=== PATIENT | male | born 1990 | race Caucasian/White ===

== ENCOUNTER 2024-03-10 09:00 | Outpatient (RCR) | payer OTHER, SELFPAY ==
--- NOTE | 2023-09-09 07:15 | HP.OTEVAL_ITS ---
Patient's Visit Information Visit Information Visit Information: MONIKA MATA is a 33 year old M, referred to Occupational Therapy by CARLOS JETT, with a diagnosis of right hand crush injury with open fx and tendon laceration. Date of Evaluation: 09/01/23 Occupational Therapist: Caroline Quinonez, JAYR/Nguyen, CHT Subjective Subjective: This 33 year old male was seen for initial OT eval with dx of right hand crush injury with tendon Zone 2 FDS and FDP of ring and long finger with radial digital nerve of ring finger - complete transection of long finer of EDC and partial transection of ring finger EDC, open displaced fraxture of proximal phalanx of long finger and ring finger Pt arrives for eval on 09/01/22 due to complications of Workers comp approval. pt now arrives with dorsal blocking orthosis on distal finger strap off - pt state he took it off because his fingers were too painful to tolerate. Has been of shortly after the dorsal blocking orthosis was made. [employer] a [employer]- pt has been employed for 12 years. DOI 08/08/23 - pt suffered a right hand crush injury between trailer -pt is unsure how he got his hand out- pt states she went to his bosses home- they called [employer] to take him to [facility]. Sent to [facility] for sx. Pt underwent emergency sx at [facility] on 08/08/23 same day as injury. pt arrives 3weeks and 3 days s/p from open reduction internal fixation phalangeal shaft fracture proximal long and ring/ irrigation and debridement pt states right MF and RF numbness (states better but still decreased sensation) pt states pain ranges 5-7/10 has been taking care of pin sites and dressing changes. pt is limited with any functional use of right and at this time. Pain Right hand: Current Pain Intensity: 0 Pain Intensity Range: 5 and 7 ROM ROM Comments: pt arrives to session with pin placements in tact of right Long and ring finger- pts PIPs are flexed at all digits to approximately 85* (touching toussaint strap) this allowed fingers to flex down vs maintaining safe position in his orthosis. therapist ed. pt why strap is important and position of fingers. pt and demo understanding. Strength Strength Comments: will test later date Quick DASH-Disab of Arm,Shoulder& Hand Quick DASH Score: 93.3325 Goals Goal:100% adherence to protocol: Yes Comment: Zone 2 FDP/FDS repair guidelines Goal:Daily scar massage when approriate: Yes Goal:ROM equal to unaffected hand: Yes Goal:Rn Navigator/Pinch strength at least 75% of unaffected hand: Yes Comment: will not initiate until Dr. warner pt due to prox. phalanx fx Goal:No pain with affected hand use: Yes Goal:Full use of affected hand in daily activities including work: Yes Goal:Decrease scar hypersensitivity: Yes Other Goal: pt and family will demo understanding of dorsal blocking orthosis at all times, off for pin cleaning only by end of 1st session. Rehabilitation General Assessment: pt arrives 3 weeks and 3 days s/p from ORIF of right RF and LF proximal phalanx fx, right LF zone 2 FDS & FDP laceration repair, right ring finger FDS zone 2 laceration repair with radial FDS skip excision, right LF & RF extensor tendon repair proximal phalanx level, right ring finger radial digital neve repair. Pt arrives with and dorsal blocking orthosis on- pt had distal strap off due to pain- fingers are now in flexed position vs safe position. pin sites are clean and look well taken care of. pt limited all use of right hand at this time. pt demo need for skilled OT services 2-3x week for next 8 weeks to assist pt in gaining scar mtg, ROM and when appropriate strengthening to return pt to his PLOF. Today therapist ed, pt on dx and why [place] blocking orthosis is needed. Ed. pt that all straps needed to be on to keep pts hand in safe position to limit complications of contractures/scar adhesions. pt demo understanding. Rehabilitation Potential: Good Anticipated Interventions Anticipated Interventions: A/AAROM/PROM, Edema Control, Scar Care, Triggerpoint Release, Wound Care, Modalities, Orthoses, Joint Protection/Energy Conservation, Ergonomic Education, Fine Motor Coord/Helder, Neuro Reeducation, Education re assistive Equipment, Education re Diagnosis, Caregiver Training and Home Program Visit Plan Frequency: 1-2x /Week Duration: 2 Months TEXT: Thank you for the opportunity to evaluate your patient. For Medicare and Medicare HMO plans, please review the plan of care and approve it. It will need to be FAXED BACK to us at [phone] for Medicare purposes. Please let me know if there are questions or concerns regarding this plan of care. Physician Signature: ____Date:
--- NOTE | 2023-10-01 17:44 | OTREVAL_ITS ---
Re-Evaluation Intro: CARLOS JETT, It has been my pleasure to treat MONIKA MATA over the last 10 visits for right hand crush injury with open fx and tendon laceration. Please see the progress note below for an update on the occupational therapy plan of care! Subjective Subjective: pt arrives 7 weeks and 5 days s/p from zone 2 right hand crush injury with open fx and tendon laceration FDP/FDS with extensor tendon laceration and repair. Objective Objective/Function: IF MCP current ROM -5/85 prior -30/ 90 PIP current -10/105 prior-20/90 DIP 0/65 prior 0/60 MF MCP ROM current -30/80 prior -50/85 PIP -65/80 prior -70/70 DIP 20/20 MF DIP demo sight tendon motion blocking RF MCP current 0/70 prior -20/65 PIP -65/76 prior ROM -75/75 DIP 20/20 prior ROM 30 LF MCP current 0/85 prior -5/ 80 PIP -15/ DIP -5/80 LF demo full functional AROM pts incisions have healed: pt demo with scar adhesions both flexion and ext of MF and RF. pt is out of orthosis he has elastomer for scar - wearing night- pt is performing AROM and PROM to his viraj. therapy is working with joints of MF and RF to increase mobility, use of FES to increase flexion/extension pull through scar adhesions. Plan Plan Frequency: 1-2x /Week Duration: 2 Months Visits in this POC: 18 Plan: pt to return to Dr. this Friday. Goals Goals Patient Goals: Regain Mobility, Regain Strength, Decrease Pain, Return to Work, Improve Fine Motor Skills, Use Hand/Wrist/Arm Normally Again and Increase ROM Goal:100% adherence to protocol: Yes Goal:Daily scar massage when approriate: Yes Goal:ROM equal to unaffected hand: Yes Goal:Human Factors Engineer/Pinch strength at least 75% of unaffected hand: Yes Goal:No pain with affected hand use: Yes Goal:Full use of affected hand in daily activities including work: Yes Goal:Decrease scar hypersensitivity: Yes Other Goal: pt and family will demo understanding of dorsal blocking orthosis at all times, off for pin cleaning only by end of 1st session. Anticipated Interventions Anticipated Interventions Anticipated Interventions: A/AAROM/PROM, Edema Control, Scar Care, Triggerpoint Release, Wound Care, Modalities, Orthoses, Joint Protection/Energy Conservation, Ergonomic Education, Fine Motor Coord/Helder, Neuro Reeducation, Education re assistive Equipment, Education re Diagnosis, Caregiver Training and Home Program Re-Evaluation Ending Re-evaluation ending: Please do not hesitate to contact me at [phone] by phone or if you have questions or concerns regarding this new plan of care! Sincerely, Caroline Quinonez, OTR/L, CHT
--- NOTE | 2023-11-26 09:44 | OTREVAL_ITS ---
Re-Evaluation Intro: CARLOS JETT, It has been my pleasure to treat MONIKA MATA over the last 12 visits for right hand crush injury with open fx and tendon laceration. Please see the progress note below for an update on the occupational therapy plan of care! Subjective Subjective: pt arrives to session states she is feeling ok- did use his hand to try and repair his truck - noticed increase burning sensation when he finally came in the house and took a shower- like feeling of hot water on a cold hand pt is compliant with all his HEP and use of orthosis. Objective Objective/Function: pts MCP flexion AROM has improved to WFL. pts PIPJ continue to be limited with AROM right MF PIP AROM -60/80* right RF PIP AROM -65/85* PROM of Right MF and RF PIP flexion following can get to 90* but with loss of PIP ext to -60 from -50* ed. pt with increase in flexion may lose ext pt joint mobility of PIPJ with PROM and AROM not sig. for functional joint motion. pt is compliant with use of orthosis and performing his ex. Plan Plan Plan: return to to discuses next step. pt will cont. with use of orthosis and PROM/AROM and AAROM at tolerated. Goals Goals Patient Goals: Regain Mobility, Regain Strength, Decrease Pain, Return to Work, Improve Fine Motor Skills, Use Hand/Wrist/Arm Normally Again and Increase ROM Goal:100% adherence to protocol: Yes Goal:Daily scar massage when approriate: Yes Goal:ROM equal to unaffected hand: Yes Goal:Log Rider/Pinch strength at least 75% of unaffected hand: Yes Goal:No pain with affected hand use: Yes Goal:Full use of affected hand in daily activities including work: Yes Goal:Decrease scar hypersensitivity: Yes Other Goal: pt and family will demo understanding of dorsal blocking orthosis at all times, off for pin cleaning only by end of 1st session. Anticipated Interventions Anticipated Interventions Anticipated Interventions: A/AAROM/PROM, Edema Control, Scar Care, Triggerpoint Release, Wound Care, Modalities, Orthoses, Joint Protection/Energy Conservation, Ergonomic Education, Fine Motor Coord/Helder, Neuro Reeducation, Education re assistive Equipment, Education re Diagnosis, Caregiver Training and Home Program Re-Evaluation Ending Re-evaluation ending: Please do not hesitate to contact me at [phone] by phone or if you have questions or concerns regarding this new plan of care! Sincerely, Caroline Quinonez, OTR/L, CHT
--- NOTE | 2023-11-26 09:45 | OTREVAL_ITS ---
Re-Evaluation Intro: CARLOS JETT, It has been my pleasure to treat MONIKA MATA over the last 12 visits for right hand crush injury with open fx and tendon laceration. Please see the progress note below for an update on the occupational therapy plan of care! Subjective Subjective: pt arrives to session states she is feeling ok- did use his hand to try and repair his truck - noticed increase burning sensation when he finally came in the house and took a shower- like feeling of hot water on a cold hand pt is compliant with all his HEP and use of orthosis. Objective Objective/Function: pts MCP flexion AROM has improved to WFL. pts PIPJ continue to be limited with AROM right MF PIP AROM -60/80* right RF PIP AROM -65/85* PROM of Right MF and RF PIP flexion following can get to 90* but with loss of PIP ext to -60 from -50* ed. pt with increase in flexion may lose ext pt joint mobility of PIPJ with PROM and AROM not sig. for functional joint motion. pt is compliant with use of orthosis and performing his ex. Plan Plan Frequency: 1-2x /Week Duration: 2 Months Visits in this POC: 16 Plan: return to to discuses next step. pt will cont. with use of orthosis and PROM/AROM and AAROM at tolerated. Goals Goals Patient Goals: Regain Mobility, Regain Strength, Decrease Pain, Return to Work, Improve Fine Motor Skills, Use Hand/Wrist/Arm Normally Again and Increase ROM Goal:100% adherence to protocol: Yes Goal:Daily scar massage when approriate: Yes Goal:ROM equal to unaffected hand: Yes Goal:Computer Laboratory Technician/Pinch strength at least 75% of unaffected hand: Yes Goal:No pain with affected hand use: Yes Goal:Full use of affected hand in daily activities including work: Yes Goal:Decrease scar hypersensitivity: Yes Other Goal: pt and family will demo understanding of dorsal blocking orthosis at all times, off for pin cleaning only by end of 1st session. Anticipated Interventions Anticipated Interventions Anticipated Interventions: A/AAROM/PROM, Edema Control, Scar Care, Triggerpoint Release, Wound Care, Modalities, Orthoses, Joint Protection/Energy Conservation, Ergonomic Education, Fine Motor Coord/Helder, Neuro Reeducation, Education re assistive Equipment, Education re Diagnosis, Caregiver Training and Home Program Re-Evaluation Ending Re-evaluation ending: Please do not hesitate to contact me at [phone] by phone or if you have questions or concerns regarding this new plan of care! Sincerely, Caroline Quinonez OTR/L, CHT
== END 2024-03-10 19:00 | disposition home or self-care (01) ==
LOC: OT 09:00
DX: S62.609B Fracture of unspecified phalanx of unspecified finger, initial encounter for open fracture (principal); S66.901D Unspecified injury of unspecified muscle, fascia and tendon at wrist and hand level, right hand, subsequent encounter; S66.801D Unspecified injury of other specified muscles, fascia and tendons at wrist and hand level, right hand, subsequent encounter; S67.21XD Crushing injury of right hand, subsequent encounter
CPT/HCPCS: 97035; 97110; 97140; 97166; 97167; 97530

== ENCOUNTER 2024-11-08 17:30 | Outpatient (RCR) | payer OTHER, SELFPAY ==
--- NOTE | 2024-09-14 14:50 | HP.OTEVAL_ITS ---
Patient's Visit Information Visit Information Visit Information: MONIKA MATA is a 34 year old M, referred to Occupational Therapy by Dr. Juan Daniel Griffith MD, with a diagnosis of right long & ring finger PIP joint contractures. Date of Evaluation: 09/09/24 Occupational Therapist: Caroline Quinonez, GAVINO/Nguyen, CHT Subjective Subjective: This 34 year old male was seen for OT eval with dx of long and Ring finger PIP contracture after a traumatic work-related injury. PT was seen in this facility following his initial injury. on 2023 pt had right Long and Ring finger digit widget dynamic external fixation application. pts states procedure took 30 min. pt states possible on for follow up. MF withing the last week has really come up into ext. RF came up about two weeks ago. and pt has been taking care of the pin sites pt states he has educated himself on all the ins and outs of the digit widget. Pain right hand: Current Pain Intensity: 4 Pain Intensity Range: 4 and 6 ROM ROM Comments: PIP ext. of MF -5 PIP ext of RF -5 pt demo with finger widget on - good clean pin sites slight swelling but full close to PIP full extension noted DIP flexion - pt attempted flexion of fingers therapist noted trace of motion Strength Strength Comments: will test later date Edema Other: slight around PIP but finger widget is in place Sensation Sensation Comments: denies changes since his last therapy sessions. Quick DASH-Disab of Arm,Shoulder& Hand Quick DASH Score: 76.6650 Goals Goal:100% adherence to protocol: Yes Comment: following Digit widget guidelines Goal:Daily scar massage when approriate: Yes Goal:ROM equal to unaffected hand: Yes Goal:Honing Machine Operator Production/Pinch strength at least 75% of unaffected hand: Yes Comment: initiate when dr. warner pt. Goal:No pain with affected hand use: Yes Goal:Full use of affected hand in daily activities including work: Yes Rehabilitation General Assessment: pt arrives 4 weeks following right long and ring finger digit widget dynamic external fixation applied. Pt demo need for skilled OT services 1x week for 10 weeks to maximize pts functional return of his right MF and RF ROM. pt has made great gains with his progression of the digit widget - as prior pts PIP contractures were 80* or more- pt demo now successfully getting PIPs in extension. Therapist advised pt that he should not cause pain or increased swelling. Therapist ed. pt on initiation of ROM ex pt demo understanding and agrees to POC. Rehabilitation Potential: Good Anticipated Interventions Anticipated Interventions: A/AAROM/PROM, Strengthening, Scar Care, Triggerpoint Release, Modalities, Orthoses, Joint Protection/Energy Conservation, Ergonomic Education, Fine Motor Coord/Helder, Education re assistive Equipment, Education re Diagnosis, Caregiver Training and Home Program Visit Plan Frequency: 1x/Week Duration: 3 Months TEXT: Thank you for the opportunity to evaluate your patient. For Medicare and Medicare HMO plans, please review the plan of care and approve it. It will need to be FAXED BACK to us at [phone] for Medicare purposes. Please let me know if there are questions or concerns regarding this plan of care. Physician Signature:____ Date:
--- NOTE | 2025-03-23 14:44 | HP.OT.NRP ---
Patient Information Patient Information: MONIKA MATA was seen in my office for initial evaluation on 09/09/24. The following Plan of Care was established for this patient: POC Established Initial Frequency: 1x/Week Initial Duration: 3 Months Plan: cont to increase pts AROM of PIP of MF and RF Anticipated Interventions Anticipated Interventions: A/AAROM/PROM, Strengthening, Scar Care, Triggerpoint Release, Modalities, Orthoses, Joint Protection/Energy Conservation, Ergonomic Education, Fine Motor Coord/Helder, Education re assistive Equipment, Education re Diagnosis, Caregiver Training and Home Program Last Seen Last Seen: This patient was last seen in our office 12/06/24. Pertinent comments regarding their Occupational therapy will appear below: no further apts have been scheduled and due to time lapse in services pt is d/c. At this point I will be discontinuing this patient from occupational therapy. I would be happy to see this patient again in the future if found appropriate by the physician. Thank you! Caroline Quinonez, OTR/L, CHT
== END 2024-11-08 19:00 | disposition home or self-care (01) ==
LOC: OT 17:30
PROVIDERS: Referring Provider Orthopaedic Surgery; Visit Provider Orthopaedic Surgery
DX: M24.541 Contracture, right hand (principal)
CPT/HCPCS: 97140; 97166; 97167; 97530